=== PATIENT | male | born 1985 | race Two or more races ===

== ENCOUNTER 2019-12-10 19:32 | Emergency (ER) | payer MEDICAID, OTHER ==
[~2019-12-10] VITALS: Ht 185.4 cm; Wt 104.3 kg
[2019-12-10 20:24] VITALS: BP 125/85
== END 2019-12-10 21:07 | disposition left against medical advice (07) ==
LOC: ER 19:32
DX: M54.9 Dorsalgia, unspecified (principal); Z53.21 Procedure and treatment not carried out due to patient leaving prior to being seen by health care provider